=== PATIENT | male | born 1960 | race Caucasian/White ===

== ENCOUNTER 2019-09-09 17:31 | Emergency (ER) | payer SELFPAY ==
[~2019-09-09] VITALS: Ht 175.3 cm; Wt 66.8 kg
[2019-09-09 22:11] VITALS: BP 118/76
--- NOTE | 2019-09-09 23:26 | NUR ---
TASK RN: DC EDUCATION PROVIDED, PT DEMONSTRATES UNDERSTANDING. PT AMBULATED STEADILY TO DC WITH RN
== END 2019-09-09 23:28 | disposition home or self-care (01) ==
LOC: ED 23:22
DX: L03.115 Cellulitis of right lower limb (principal)
CPT/HCPCS: 99283